=== PATIENT | female | born 1960 | race Caucasian/White ===

== ENCOUNTER 2019-02-18 15:03 | Emergency (ER) | payer OTHER ==
[~2019-02-18] VITALS: Ht 172.7 cm; Wt 68.0 kg
--- NOTE | 2019-02-18 15:20 | NUR ---
PATIENT WAS MSE BY DR ROSENBAUM IN ROOM 04A. PATIENT A & O X4
[2019-02-18] MEDS ORDERED: IBUPROFEN 600 MG TABLET ONE (15:28)
[2019-02-18] MEDS ORDERED: ACETAMINOPHEN ES 500 MG TABLET ONE (15:28)
[2019-02-18] MEDS ORDERED: IBUPROFEN 600 MG TABLET PO ONE (15:30)
[2019-02-18] MEDS ORDERED: ACETAMINOPHEN ES 500 MG TABLET PO ONE (15:30)
--- NOTE | 2019-02-18 15:34 | NUR ---
Patient discharged to home in stable conditon. Written and verbal after care instructions given. Patient verbalizes understanding of instructions.
[2019-02-18 15:35] VITALS: BP 103/81
== END 2019-02-18 15:38 | disposition home or self-care (01) ==
LOC: ER 15:08
DX: M54.5 Low back pain (principal); V49.9XXA Car occupant (driver) (passenger) injured in unspecified traffic accident, initial encounter; Y93.89 Activity, other specified; Y92.89 Other specified places as the place of occurrence of the external cause; Y99.8 Other external cause status
CPT/HCPCS: A4663; A9150